=== PATIENT | female | born 1990 | race Caucasian/White ===

== ENCOUNTER 2018-01-09 16:03 | Emergency (ER) | payer OTHER ==
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
--- NOTE | 2018-01-09 18:16 | XR ---
EXAMINATION TYPE: XR nasal bone DATE OF EXAM: 01/09/2018 COMPARISON: NONE HISTORY: Pain TECHNIQUE: 3 views FINDINGS: There is nondisplaced fracture of the anterior tip of the nasal bone on the lateral view. M axillary spine is intact. There is increased density over the right maxillary sinus that could relate to inflammatory disease. There is slight increased density at the roof of the sinus and the possibil ity of blowout fracture should be considered. Correlation with the physical exam is recommended. IMPRESSION: Nasal bone fracture without displacement. Abnormal right maxillary sinus as above.
[2018-01-09 18:44] VITALS: BP 109/70; PULSE 110; RESP 20; TEMP 98.3
== END 2018-01-09 18:44 | disposition home or self-care (01) ==
LOC: EC 16:03
DX: S02.2XXA Fracture of nasal bones, initial encounter for closed fracture (principal); S43.402A Unspecified sprain of left shoulder joint, initial encounter; S83.92XA Sprain of unspecified site of left knee, initial encounter; F17.200 Nicotine dependence, unspecified, uncomplicated; Z88.8 Allergy status to other drugs, medicaments and biological substances; Y09 Assault by unspecified means; Y92.89 Other specified places as the place of occurrence of the external cause
CPT/HCPCS: 70160; 99283